=== PATIENT | male | born 1975 | race Hispanic/Latino ===

== ENCOUNTER → 2020-12-31 08:37 | Outpatient (CLI) | payer OTHER, SELFPAY ==
[2020-12-31] MEDS: COVID-19 VACC #1, MRNA(MOD) 100 MCG/0.5 ML VIAL IM (08:43)
== END ==
PROVIDERS: Visit Provider Internal Medicine
DX: Z23 Encounter for immunization (principal)
CPT/HCPCS: 0011A; 91301

== ENCOUNTER → 2021-01-28 08:30 | Outpatient (CLI) | payer OTHER, SELFPAY ==
[2021-01-28] MEDS: COVID-19 VACC #2, MRNA(MOD) 100 MCG/0.5 ML VIAL IM (08:40)
== END ==
PROVIDERS: Visit Provider Internal Medicine
DX: Z23 Encounter for immunization (principal)
CPT/HCPCS: 0012A; 91301